=== PATIENT | female | born 2000 | race Caucasian/White ===

== ENCOUNTER 2024-04-02 20:31 | Observation (INO) | payer BC, MEDICAID, SELFPAY ==
[2024-04-02 20:43] VITALS: BP 133/77; PULSE 93
[2024-04-02 20:45] VITALS: BMI 42.0
== END 2024-04-02 21:34 | disposition home or self-care (01) ==
PROVIDERS: Admitting Provider Specialist; Visit Provider Specialist
DX: O47.9 False labor, unspecified (principal); Z3A.00 Weeks of gestation of pregnancy not specified
CPT/HCPCS: 59899

== ENCOUNTER 2024-04-03 03:53 | Inpatient (IN) | payer BC, MEDICAID, SELFPAY ==
[2024-04-03] VITALS (159 sets, daily range): BP systolic 95–153; BP diastolic 43–83; PULSE 72–136; O2SAT 92–100; BMI 42.0
--- NOTE | 2024-04-03 06:32 | PD.LDHP ---
Documentation for date of: 04/03/24 OB Labor/Induct. HPI History of Present Illness History of present illness: H and P dictated in Nuance [id number] Meds Home Medications and Allergies Home Medications ?Medication ?Instructions ?Recorded ?Confirmed ?Type iron 18 mg tablet 18 mg DAILY 04/02/24 04/03/24 History no.58-iron bisglycinate 400 cap PO DAILY 04/02/24 04/03/24 History 10 mg iron-folic acid 400 mcg capsule Allergies Allergy/AdvReac Type Severity Reaction Status Date / Time amoxicillin Allergy Unknown RASH Unverified 01/15/16 21:49
[2024-04-03 06:53] LABS: Basophils % (Auto) 0 % (0-2.5); Eosinophils % (Auto) 0 % (0-10); Hematocrit 34.9 % (36.0-46.0); Immature Granulocytes % (Auto) 0 % (0-0); Immature Granulocytes Auto 0.05 Thou/mm3 (0.00-0.00); Lymphocytes # (Auto) 1.4 Thou/mm3 (1.0-4.8); Lymphocytes % (Auto) 12 % (10-50); Mean Corpuscular HGB Conc 34.4 g/dl (31.0-37.0); Mean Corpuscular Hemoglobin 28.9 pg (25.0-35.0); Mean Corpuscular Volume 84 fL (80-100); Monocytes # (Auto) 0.6 Thou/mm3 (0.0-0.8); Monocytes % (Auto) 5 % (0-12); Neutrophils # (Auto) 9.2 Thou/mm3 (1.8-7.7); Neutrophils % (Auto) 82 % (37-80); Nucleated Red Blood Cell % 0 /100 WBC (0); Platelet Count 205 Thou/mm3 (140-440); RDW Standard Deviation 41.7 fL (36.4-46.3); Red Blood Count 4.15 Miln/mm3 (4.00-5.20); White Blood Count 11.2 Thou/mm3 (3.6-11.0)
[2024-04-03 07:33] LABS: Syphilis Nonreactive (Nonreactive)
[2024-04-03] MEDS: fentaNYL CIT INJ 50 mCg/ML AMP 2ML 100 MCG IV (07:59)
--- NOTE | 2024-04-03 08:03 | ESHP_ITS ---
RE: JOSE ALBERTO HIGGINS : 2000 DATE OF ADMISSION: 04/03/2024 HISTORY OF PRESENT ILLNESS: This is a 23-year-old 1, para 0 with a due date of 04/01/2024 with intrauterine at 40 weeks and 2 days. She presents to labor and delivery complaining of contractions and is noted to be in early labor. She denies any leaking or bleeding. She reports normal movement. Her was complicated by a positive QuantiFERON TB gold test. She is asymptomatic and her chest x-ray was negative. She was also treated for iron deficiency anemia during her . ALLERGIES: MACROBID AND AMOXICILLIN. MEDICATIONS: 1. multivitamin 1 p.o. daily. 2. Baby aspirin 81 mg 1 p.o. daily. 3. Ferrous sulfate 325 mg 1 p.o. daily. SOCIAL HISTORY: She denies any alcohol, drug use, or smoking. 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 PAST MEDICAL HISTORY: Iron deficiency anemia. Latent tuberculosis infection. Needs treatment 3 months . FAMILY HISTORY: Maternal grandfather has colon cancer and maternal uncle has diabetes. PAST SURGICAL HISTORY: Denies. PHYSICAL EXAMINATION: VITAL SIGNS: Blood pressure 128/77, heart rate 88, respirations 18, temperature 98.2, weight 246 pounds. HEENT: Oropharynx and sclerae are clear. LUNGS: Clear to auscultation bilaterally. HEART: Regular rate and rhythm. ABDOMEN: Gravid term size consistent with estimated weight 8 pounds. PELVIC: See RN notes. EXTREMITIES: Nontender. SKIN: No gross rashes or lesions. NEUROLOGIC: No focal deficit. ASSESSMENT AND PLAN: Intrauterine at 40 weeks and 2 days. Early labor. Anticipate spontaneous vaginal delivery. Informed consent was obtained and the patient was made aware of the risks, complications, alternatives, and benefits of operative vaginal delivery and delivery, agrees with these modes of delivery if indicated. DT: 06:29:08 TT: 07:36:00 Ref: [id number] - TID: [id number]
[2024-04-03] MEDS: RINGERS LACTATED 1000 ML 1,000 ML 100 ML IV ×2 (12:45→21:46)
[2024-04-03] MEDS: OXYTOCIN in NS 20 units 20 UNIT/1,000 ML BAG 125 UNIT IV (16:40)
[2024-04-03] MEDS: MISOPROSTOL 200 mCg TABLET 800 MCG PR (16:45)
[2024-04-03] MEDS: METHYLERGONOVINE INJ 0.2 MG/ML VIAL IM (17:01)
--- NOTE | 2024-04-03 17:41 | OBDSUM_ITS ---
Vacuum Assisted Delivery General Patient Counseled by physician:: Yes Informed consent to patient:: Yes Estimated weight:: 7 lb 8 oz Cervical dilation:: fully dilated station:: +4 position:: OA Molding:: No Caput:: Yes Vacuum Application Vacuum type:: Kiwi Vacuum application:: flexing median Total vacuum time (min):: 2 Maximum pressure (cm Hg):: 50 Cup Placement Flexion point identified:: Yes Cup approp. for head position:: Yes Maternal tissue excluded:: Yes Vacuum Procedure Number of pulls (contractions):: 2 Number of pop-offs:: 0 Recommended range maintained:: Yes Vacuum reduced between pulls:: Yes Advancement made each pull:: Yes Vacuum successful:: Yes Immediate [place] Evaluation Immediate assessment:: no apparent injury Hand-off care to:: nursery nurse Additional Comments Additional comments: Vacuum performed for bradycardia and poor maternal expulsive effort. Data ([place]mann) Data : 1 Para: 0 Term: 0 : 0 : 0 Delivery Data ([place]mann) Labor Data ROM Date: 04/03/24 ROM Time: 13:58 Rupture Type: AROM Amniotic Fluid: Clear Delivery Data EDC: 04/01/24 EDC calculated by:: LMP/early US confirmation Labor Onset Stage 1 Date: 04/03/24 Labor Onset Stage 1 Time: 13:58 Labor Onset Stage 2 Date: 04/03/24 Labor Onset Stage 2 Time: 16:18 Delivery Date: 04/03/24 Delivery Time: 16:33 Placenta Delivery Date: 04/03/24 Placenta Delivery Time: 16:56 Delivered by: Laureano Cohen Delivery nurse: Link Taylor Other staff at delivery: Baby Care/Pot Sander Other staff at delivery: Evelyn Beth Delivery Method Delivery: Vaginal Delivery Type: Vacuum Assisted Presentation: Vertex Position: OA Anesthesia Type Primary Anesthesia: Epidural Placenta Placenta Delivery: Manual Placenta Cultures Obtained: No Cord Sample: Cord Blood Obtained Lacerations #1: Perineal: 2nd degree EBL Estimated blood loss (ml): 400 Additional Procedures Manual placental removal and uterine curettage Complications Complications: Retained placenta Uterine atony [place] Data ([place]mann) [place] Data Infant Gender: Female Infant Weight Grams: 3150 1 Minute Total: 8 5 Minute Total: 9
--- NOTE | 2024-04-03 17:41 | PD.LDDS ---
DS: Providers Provider Date of admission: 04/03/24 06:28 Primary care physician: Physician No Primary/Family Admitting Provider: Laureano Cohen MD Attending Provider on Admission: Laureano Cohen MD Attending Provider on DC: Laureano Cohen MD Discharging Provider: Laureano Cohen MD DS: Diagnosis Problem List Completed Was Problem List Reviewed/Reconciled?: Yes Summary/Hosp Course Brief History: H and P dictated in Nuance [id number] Time Spent with Patient Time attestation: Total time spent providing and/or coordinating discharge services: Exam Vital Signs Pulse BP Pulse Ox 108 H 119/57 L 99 04/03/24 17:35 04/03/24 17:35 04/03/24 17:38 Discharge Plan Plan Patient Disposition: HOME (Self Care) Patient condition on transfer: Stable Prescriptions/Referrals Prescriptions/Med Rec: New ibuprofen 600 mg tablet 600 mg PO Q6H PRN (Reason: pain) Qty: 30 0RF No Action iron 18 mg Tablet 18 mg DAILY 10-400 mg-mcg Capsule 400 cap PO DAILY Referrals: No Primary/Family,Physician [Primary Care Provider] - Patient/Caregiver Discharge Instructions Discharge Activity: activity as tolerated Other Discharge Activity Instructions:: Follow up office 6 weeks. Education Materials: After a Vaginal , Pain After Childbirth, Depression Print Language: Turkish Stand Alone Forms: Zoila Award Info., Patient Portal Info Letter Discharge Order Discharge Orders: Discharge (Routine); Ordered 04/04/24 Ordered By: Laureano Cohen Planned Discharge Date 04/04/24
--- NOTE | 2024-04-03 17:58 | ESPR_ITS ---
Exam Vital Signs Pulse BP Pulse Ox 162 H 95/43 L 99 04/03/24 17:49 04/03/24 17:49 04/03/24 17:58 Narrative Exam Above vitals noted. When I arrived at bedside at 1755 her HR was 114 and BP 95/43. Pt denies dizziness or lightheadedness. Her perineal pad was not saturated. Her fundus was firm. I cleared small clots from lower uterine segment. No significant bleeding seen. Objective Labs 04/03/24 06:30 Labs: Laboratory Results - last 24 hr 04/03/24 04/03/24 06:30 10:26 WBC 11.2 H RBC 4.15 Hgb 12.0 Hct 34.9 L MCV 84 MCH 28.9 MCHC 34.4 RDW Std Deviation 41.7 Plt Count 205 Neut % (Auto) 82 H Lymph % (Auto) 12 [place] % (Auto) 5 Eos % (Auto) 0 Baso % (Auto) 0 Neut # (Auto) 9.2 H Lymph # (Auto) 1.4 [place] # (Auto) 0.6 Eos # (Auto) 0.0 Baso # (Auto) 0.0 Immature Gran # (Auto) 0.05 H Absolute Nucleated RBC 0.00 Immature Gran % 0 Nucleated RBC % 0 Syphilis Serology Nonreactive Blood Type O Positive Antibody Screen NEGATIVE Blood Bank Wristband ID Yes Impressions Impression: Transient tachycardia but not persistent Firm fundus No excessive bleeding Hemodynamically stable Assessment & Plan Plan Comment Plan Comment: Bonus 1 liter of NS IV fluid over one hour Continue Pitocin. Time Spent With Patient Time:
[2024-04-03] MEDS: CLINDAMYCIN 900MG IVPB 900 MG in PRE-MIXED 1 BAG 50 MG IV (18:58)
[2024-04-03 23:06] LABS: Basophils % (Auto) 0 % (0-2.5); Eosinophils # (Auto) 0.2 Thou/mm3 (0.0-0.5); Eosinophils % (Auto) 1 % (0-10); Hematocrit 28.5 % (36.0-46.0); Hemoglobin 9.5 g/dL (12.0-16.0); Immature Granulocytes % (Auto) 1 % (0-0); Immature Granulocytes Auto 0.07 Thou/mm3 (0.00-0.00); Lymphocytes # (Auto) 1.5 Thou/mm3 (1.0-4.8); Lymphocytes % (Auto) 11 % (10-50); Mean Corpuscular HGB Conc 33.3 g/dl (31.0-37.0); Mean Corpuscular Hemoglobin 28.7 pg (25.0-35.0); Mean Corpuscular Volume 86 fL (80-100); Monocytes # (Auto) 0.5 Thou/mm3 (0.0-0.8); Monocytes % (Auto) 4 % (0-12); Neutrophils # (Auto) 10.5 Thou/mm3 (1.8-7.7); Neutrophils % (Auto) 82 % (37-80); Nucleated Red Blood Cell % 0 /100 WBC (0); Platelet Count 191 Thou/mm3 (140-440); RDW Standard Deviation 42.7 fL (36.4-46.3); Red Blood Count 3.31 Miln/mm3 (4.00-5.20); White Blood Count 12.8 Thou/mm3 (3.6-11.0)
[2024-04-04] VITALS: BP 118/81; PULSE 111; RESP 17; TEMP 36.9; O2SAT 98
[2024-04-04] MEDS: CLINDAMYCIN IV (03:02)
[2024-04-04] MEDS: NS IV (03:02)
[2024-04-04 04:30] VITALS: BP 114/74; PULSE 109; RESP 18; TEMP 36.9; O2SAT 97
[2024-04-04 08:00] VITALS: BP 112/71; PULSE 103; RESP 18; TEMP 36.9; O2SAT 97
[2024-04-04 09:26] LABS: Gentamicin, Random 1.3 mcg/mL (4.0-10.0)
--- NOTE | 2024-04-04 10:08 | ESPR_ITS ---
RE: JOSE ALBERTO HIGGINS : 2000 DATE OF SERVICE: 04/04/2024 S: The patient denies any problem or complaints. She is voiding. She is ambulating. She tolerated diet. She is passing flatus. She denies any dizziness or lightheadedness. She denies any chest pain, palpitations, shortness of breath, or lower extremity pain. She denies any excessive vaginal bleeding. O: VITAL SIGNS: Blood pressure 114/74, heart rate 109, respirations 18, temperature 98.4, pulse oximetry 97% on room air. LUNGS: Clear to auscultation bilaterally. HEART: Regular rate and rhythm. ABDOMEN: Fundus is firm, nontender. EXTREMITIES: Nontender. LABORATORY DATA: Hemoglobin pre-delivery is 12.0, post delivery is 9.5. ASSESSMENT AND PLAN: day #1 status post vacuum-assisted vaginal delivery, status post manual placenta removal and uterine curettage for retained placenta. Continue prophylactic antibiotics to the 24-hour point and then discontinue. Monitor for any excessive vaginal bleeding and possible discharge home tomorrow. I encouraged ambulation. DT: 07:42:33 TT: 09:55:00 Ref: [id number] - TID: [id number]
[2024-04-04] MEDS: CLINDAMYCIN 900MG IVPB 50 ML 100 MG IV (11:00)
[2024-04-04 11:48] VITALS: BP 118/73; PULSE 108; RESP 18; TEMP 36.5; O2SAT 98
[2024-04-04 15:36] VITALS: BP 109/73; PULSE 88; RESP 18; TEMP 36.7; O2SAT 96
[2024-04-04 20:00] VITALS: BP 112/77; PULSE 90; RESP 18; TEMP 36.8; O2SAT 98
--- NOTE | 2024-04-08 08:30 | ESOP_ITS ---
RE: JOSE ALBERTO HIGGINS : 2000 DATE OF OPERATION: 04/03/2024 PREOPERATIVE DIAGNOSES: Status post vacuum-assisted vaginal delivery, retained placenta. POSTOPERATIVE DIAGNOSES: Status post vacuum-assisted vaginal delivery, retained placenta with uterine atony. PROCEDURES PERFORMED: Manual placental removal and uterine curettage. SURGEON: Laureano Cohen DO SALES LEDGER CLERK: None. ANESTHESIA: Epidural. ANESTHESIOLOGIST: Kimberly Dennison CRNA ESTIMATED BLOOD LOSS: 400 mL. COMPLICATIONS: None. FINDINGS: A retained placenta, uterus atonic after manual placenta removal, responded to uterotonics. DESCRIPTION OF PROCEDURE: After appropriate informed consent was obtained, the patient made aware of the risks, complications, alternatives, and benefits of the proposed procedure with epidural already in place from the delivery and with adequate anesthesia, a manual placenta removal was performed. This was followed by a uterine curettage with a Banjo curette. Additional membranes were removed and blood clots, possibly small placental fragments, but this is unclear. Then, the uterus was explored and the fundus in the cavity was free of any remaining tissues or retained placental fragments. We administered uterotonics to help firm the uterus. This included Pitocin, which was already running since the 's delivery. She then received Methergine as well as Cytotec per rectum. These measures firm the uterus. The uterus was below the umbilicus and firm at the end of the procedure. She was observed for several minutes and no significant vaginal bleeding was noted. The second-degree perineal laceration was repaired with 2-0 chromic catgut suture. She remained hemodynamically stable. All instruments were removed from the vagina. Plan is to continue antibiotics for 24 hours to prevent infection. I discussed with the patient the nature of her condition, intraoperative findings, and treatment plan. All questions were answered. DT: 17:52:17 TT: 22:04:00 Ref: [id number] - TID: [id number]
== END 2024-04-04 21:25 | disposition home or self-care (01) | DRG 797 ==
LOC: S4SX 17:17 → S4NX 21:02
PROVIDERS: Admitting Provider Specialist; Visit Provider Specialist
DX: O48.0 Post-term pregnancy (principal); O72.0 Third-stage hemorrhage; Z37.0 Single live birth; O62.2 Other uterine inertia; O70.1 Second degree perineal laceration during delivery; Z3A.40 40 weeks gestation of pregnancy
CPT/HCPCS: 36415; 59409; 80170; 85025; 86780; 86850; 86900; 86901; 86923; 94762; J1580; J2210; J2590; J2795; J3010; J7050; J7120; S0077; S0191; A9270; J0736; J3490

== ENCOUNTER 2024-08-22 22:30 | Emergency (ER) | payer BC, MEDICAID, SELFPAY ==
[2024-08-22 22:32] VITALS: BMI 39.4
[2024-08-22 23:04] VITALS: BP 109/74; PULSE 111; RESP 18; TEMP 37; O2SAT 98
--- NOTE | 2024-08-22 23:07 | PD.EDSYNC ---
ED Syncope RME/HPI General Chief Complaint: Syncope / Near Syncope Stated Complaint: passed out at home after back pain Time Seen by Provider: 08/22/24 23:05 Source: patient, family, RN notes reviewed and old records reviewed Arrival date/time: 08/22/24 22:30 Mode of arrival: wheelchair Limitations: no limitations RME / HPI RME / HPI narrative: 23yof presents to ED for lower back pain x1 day. Patient reports standing from bent over position and feeling a strain to right lower back. No fall reported. Reports increased pain with movement and ambulation. Patient took 500mg Tylenol this morning and 600mg ibuprofen at 1330 with minimal relief. Patient also reports brief syncopal episode today. She got up to change her clothes, felt dizzy and then passed out. Denies head injury. Single episode of syncope in the past when she saw blood. No shortness of breath or chest pain reported. Denies LE weakness, numbness/tingling or bowel/bladder incontinence. Related Data Home Medications ?Medication ?Instructions ?Recorded ?Confirmed iron 18 mg tablet 18 mg DAILY 04/02/24 04/03/24 no.58-iron bisglycinate 400 cap PO DAILY 04/02/24 04/03/24 10 mg iron-folic acid 400 mcg capsule Previous Rx's ?Medication ?Instructions ?Recorded ibuprofen 600 mg tablet 600 mg PO Q6H PRN pain #30 tabs 04/03/24 ibuprofen 600 mg tablet 600 mg PO Q6H PRN pain #30 tabs 08/23/24 lidocaine 5 % topical patch 1 patch topical QDAY PRN pain #15 08/23/24 ea methocarbamol 500 mg tablet 500 mg PO Q8H PRN pain #30 tabs 08/23/24 Allergies Allergy/AdvReac Type Severity Reaction Status Date / Time amoxicillin Allergy Unknown RASH Verified 08/22/24 22:41 nitrofurantoin (From Allergy Unknown Rash Verified 08/22/24 22:41 Macrobid) Review of Systems Review of Systems Systems Reviewed: All systems reviewed, normal except as documented Constitutional Constitutional: Denies chills and Denies fever(s) Cardiovascular Cardiovascular: Denies chest pain, Denies dyspnea and Reports syncope Respiratory Respiratory: Denies dyspnea Gastrointestinal Gastrointestinal: Denies abdominal pain, Denies fecal incontinence, Denies nausea and Denies vomiting Genitourinary Genitourinary: Denies dysuria, Denies hematuria and Denies urinary incontinence Musculoskeletal Musculoskeletal: Reports myalgias, Denies numbness and Denies tingling Neurologic Neurologic: Denies localized weakness, Denies numbness, Reports syncope and Denies tingling Past Medical History Past Medical History GASTROINTESTINAL: Positive Obesity Surgical History OTHER SURGICAL HX: Denies past surgical history Social History SMOKING STATUS: Never smoker SUBSTANCE USE: does not use ALCOHOL: Never ED Exam General Limitations: Present no limitations General appearance: Present alert, in no apparent distress and obese Head Head exam: Present atraumatic and normocephalic Eye Eye exam: Present normal appearance, PERRL and EOMI ENT ENT exam: Present normal exam and mucous membranes moist Neck Neck exam: Present normal inspection and full ROM Chest Chest inspection: Present normal inspection and symmetric chest wall rise Respiratory Respiratory exam: Present normal lung sounds bilaterally; Absent respiratory distress Cardiovascular Cardiovascular exam: Present regular rate and tachycardia (mild) Abdominal Exam Abdominal exam: Present soft; Absent distention or tenderness Extremities Exam Extremities exam: Present normal inspection and full ROM Back Exam Back exam: Present paraspinal tenderness (right lumbar); Absent vertebral tenderness Neurological Exam Neurological exam: Present alert, oriented X3, CN II-XII intact and other (No saddle anesthesia); Absent motor sensory deficit Psychiatric Psychiatric exam: Present normal affect and normal mood Skin Skin exam: Present warm, dry, intact and normal color Course Quality Measures none Orders Category Date Time Status EKG (ED ONLY) *Do not use* NOW Care 08/23/24 00:15 Completed EKG (ED Only) Stat Exams 08/23/24 00:15 Draft Alcohol, Urine Stat Lab 08/22/24 23:24 Completed CBC Stat Lab 08/22/24 23:51 Completed CMP [Comprehensive Metabolic Panel] Stat Lab 08/22/24 23:51 Completed Drug Screen,Urine Stat Lab 08/22/24 23:24 Completed HCG Qualitative,Urine Stat Lab 08/22/24 23:24 Completed Troponin I Stat Lab 08/22/24 23:51 Completed UA [Urinalysis] Stat Lab 08/22/24 23:24 Completed Acetaminophen Tab [Tylenol ES Tab] Med 08/23/24 00:30 Discontinued 1,000 mg PO X1 ONE CYCLObenzaPRINE [Flexeril] Med 08/23/24 00:30 Discontinued 10 mg PO X1 ONE HYDROcodone*/APAP 7.5/325 [[place] 7.5/325] Med 08/22/24 23:06 Discontinued 1 tab PO X1 ONE Ketorolac Inj [Toradol Inj] Med 08/22/24 23:06 Discontinued 30 mg IM X1 ONE Vital Signs Vital signs: Vital Signs Temperature 98.6 F 08/22/24 23:04 Pulse Rate 111 H 08/22/24 23:04 Respiratory Rate 18 08/22/24 23:04 Blood Pressure 109/74 08/22/24 23:04 Pulse Oximetry (%) 98 08/22/24 23:04 Oxygen Delivery Method Room Air 08/22/24 23:04 Procedures -ED EKG Interpretation #1: Date of EK08/23/24 Rate: 95 Interpretation: Interpreted by me EKG Impression: Normal sinus rhythm (with sinus arrythymia), No acute ST-T changes, No ectopy, No ischemic changes, Normal QRS, Normal intervals and Normal axis Additional EKG comment: No stemi Syncope MDM Narrative MDM Narrative:: 23yof presents to ED for lower back pain x1 day. Patient reports standing from bent over position and feeling a strain to right lower back. No fall reported. Reports increased pain with movement and ambulation. Patient took 500mg Tylenol this morning and 600mg ibuprofen at 1330 with minimal relief. Patient also reports brief syncopal episode today. She got up to change her clothes, felt dizzy and then passed out. Denies head injury. Single episode of syncope in the past when she saw blood. No shortness of breath or chest pain reported. Denies LE weakness, numbness/tingling or bowel/bladder incontinence. Patient reassessed. Back pain improved after medications administered. Patient is neurologically intact, able to ambulate independently. Encouraged rest, nsaid, muscle relaxer, ice/heat application prn. Syncope workup reassuring. Recommended adequate fluids, most likely vasovagal response. PCP follow-up as needed. Stable for discharge, RTED precautions given. Patient data External records reviewed:: [facility] previous records (04/03/24 ED visit for labor and delivery) Clinical information provided by:: patient Social determinants that could affect healthcare access:: other (specify) (poor access to healthcare) Patient has the following chronic illnesses:: obesity How is presenting disease/condition affected by chronic disease/condition?: exacerbated by Evaluation data The following diagnostics were reviewed and interpreted by me:: lab results and EKG tracing(s) Lab and/or radiology exams considered but not ordered:: L-spine xrays: no hx of trauma or fall, no midline tenderness Interpretation Summary: cbc 6.7 hgb 12 .5 etoh urine negative uds negative hcg negative UA +leuks, suspect contaminant. Negative wbcs Medications / Prescriptions Medications or Prescriptions considered but not ordered:: no antibiotics recommended at this time Medication administrations:: Medication Administration History Discontinued Medications Acetaminophen (Acetaminophen 500 Mg Tablet) 1,000 mg PO X1 ONE Stop: 08/23/24 00:31 Last Admin: 08/23/24 00:40 Dose: 1,000 mg Documented By: COLE Hydrocodone Bitart/Acetaminophen (Hydrocodone/Apap 7.5/325 Tablet) 1 tab PO X1 ONE Stop: 08/22/24 23:07 Last Admin: 08/22/24 23:24 Dose: 1 tab Documented By: COLE Cyclobenzaprine HCl (Cyclobenzaprine 5 Mg Tablet) 10 mg PO X1 ONE Stop: 08/23/24 00:31 Last Admin: 08/23/24 00:40 Dose: 10 mg Documented By: COLE Ketorolac Tromethamine (Ketorolac Inj 60 Mg/2 Ml Vial) 30 mg IM X1 ONE Stop: 08/22/24 23:07 Last Admin: 08/22/24 23:24 Dose: 30 mg Documented By: COLE above medications administered in ED Consultations Consultation(s) initiated? (list below): No Diagnosis Syncope Differential Diagnosis: syncope due to orthostatic hypotension, vasovagal syncope, dehydration and other (Acute back pain, strain, sprain) Most likely diagnosis given after review of the tests above:: Vasovagal syncope, back strain Admission Indicated Admission indicated?: not indicated Admission Request Was there a request for admission?: No Disposition Plan Disposition Plan: Discharge Discharge Attestation Discharge Attestation: The patient and all family members were given an opportunity to ask questions and understood the discharge instructions. Discharge instructions specifically effects, indications for sooner follow up or return to the emergency department, and the expected course of current diagnosis. Patient condition: Stable Discharge Plan Plan Patient Disposition: HOME (Self Care) Patient condition on transfer: Stable Prescriptions/Referrals Prescriptions/Med Rec: New ibuprofen 600 mg tablet 600 mg PO Q6H PRN (Reason: pain) Qty: 30 0RF methocarbamol 500 mg tablet 500 mg PO Q8H PRN (Reason: pain) Qty: 30 0RF lidocaine 5 % adhesive patch,medicated 1 patch topical QDAY PRN (Reason: pain) Qty: 15 0RF Rx Instructions: leave on most painful area for up to 12 hrs No Action iron 18 mg Tablet 18 mg DAILY 10-400 mg-mcg Capsule 400 cap PO DAILY ibuprofen 600 mg tablet 600 mg PO Q6H PRN (Reason: pain) Qty: 30 0RF Problem List Clinical Impression: Syncope, Low back strain Patient/Caregiver Discharge Instructions Education Materials: ED Back Sprain/Strain, ED Fainting, Vagal Reaction Print Language: Lao Stand Alone Forms: Zoila Award Info., Work/School Release, Patient Portal Info Letter PA/ARCHITECTURAL TECHNICIAN Supervising Physician PA/ARCHITECTURAL TECHNICIAN Supervising Physician: Monique
[2024-08-22] MEDS: HYDROcodone/APAP 7.5/325 TABLET 1 TAB PO (23:24)
[2024-08-22] MEDS: KETOROLAC INJ 60 MG/2 ML VIAL 30 MG IM (23:24)
[2024-08-22 23:42] LABS: Collection Type, Urine Clean Catch; RBC,Urine 0 /hpf (0-3)
[2024-08-23 00:02] LABS: Alcohol, Urine Negative (Negative); Amphetamine/Methamp Scrn,U Negative (Negative); Barbiturate Screen,Urine Negative (Negative); Benzodiazepines Screen,Urine Negative (Negative); Benzoylecgonine Screen, Ur Negative (Negative); Fentanyl Screen,Urine Negative (Negative); Opiate Screen,Urine Negative (Negative); THC Screen,Urine Negative (Negative)
[2024-08-23 00:08] LABS: Basophils % (Auto) 0 % (0-2.5); Eosinophils % (Auto) 0 % (0-10); Hematocrit 37.2 % (36.0-46.0); Hemoglobin 12.5 g/dL (12.0-16.0); Immature Granulocytes % (Auto) 0 % (0-0); Immature Granulocytes Auto 0.03 Thou/mm3 (0.00-0.00); Lymphocytes # (Auto) 0.7 Thou/mm3 (1.0-4.8); Lymphocytes % (Auto) 10 % (10-50); Mean Corpuscular HGB Conc 33.6 g/dl (31.0-37.0); Mean Corpuscular Hemoglobin 28.4 pg (25.0-35.0); Mean Corpuscular Volume 85 fL (80-100); Monocytes # (Auto) 0.4 Thou/mm3 (0.0-0.8); Monocytes % (Auto) 5 % (0-12); Neutrophils # (Auto) 5.6 Thou/mm3 (1.8-7.7); Neutrophils % (Auto) 84 % (37-80); Nucleated Red Blood Cell % 0 /100 WBC (0); Platelet Count 196 Thou/mm3 (140-440); RDW Standard Deviation 41.1 fL (36.4-46.3); White Blood Count 6.7 Thou/mm3 (3.6-11.0)
--- NOTE | 2024-08-23 00:15 | EKG_ITS ---
[facility] Test Date: 2024-08-23 Pat Name: JOSE ALBERTO HIGGINS Department: Room: - Gender: Female Car Mover: : 2000 Requested By: Sridhar Diane Order Number: [id number] Reading MD: Sridhar Diane Measurements Intervals [place] Rate: 95 P: 51 [place]: 173 QRS: 79 QRSD: 92 T: 53 QT: 330 QTc: 415 Interpretive Statements SINUS RHYTHM WITH SINUS ARRHYTHMIA No previous ECG available for comparison /store/S0/[id number]
[2024-08-23 00:20] LABS: Bacteria,Urine 3+; Bilirubin,Urine Negative (Negative); Blood,Urine Negative (Negative); Clarity,Urine Turbid (Clear/Hazy); Color,Urine Yellow (Lt Yel-Yel); Glucose, Urine Negative (Negative); Ketones,Urine Negative (Negative); Leukocyte Esterase,Urine Positive (Negative); Nitrite,Urine Negative (Negative); Protein,Urine Trace (Neg - Trace); Specific Gravity,Urine 1.025 (1.001-1.035); Squamous Epithelial Cell,Urine 4 /hpf (0-5); Urobilinogen,Urine Negative mg/dL (0.0-1.0); WBC,Urine 1 /hpf (0-5)
[2024-08-23 00:21] LABS: HCG Qualitative,Urine Negative
[2024-08-23 00:30] LABS: Alanine Aminotransferase < 7 U/L (10-49); Albumin, Serum 4.5 gm/dL (3.5-5.0); Albumin/Globulin Ratio 1.6 (1.2-2.2); Alkaline Phosphatase 82 U/L (46-116); Anion Gap 9 (7-16); Aspartate Amino Transferase 10 U/L (0-34); BUN/Creatinine Ratio 20 Ratio (12-20); Bilirubin,Total 0.8 mg/dL (0.3-1.2); Blood Urea Nitrogen 14 mg/dL (9-23); Calcium 8.8 mg/dL (8.3-10.6); Calcium (Corrected) 8.8 mg/dL (8.5-10.1); Carbon Dioxide 25.3 mMol/L (20.0-31.0); Chloride 107 mMol/L (98-107); Creatinine (Component) 0.7 mg/dL (0.6-1.3); Estimated Creatinine Clearance 147.1 mL/min (>60); Globulin 2.8 gm/dL (2.3-3.5); Glucose 99 mg/dL (74-106); Osmolality,Calculated 281 (275-295); Potassium 3.7 mMol/L (3.4-5.1); Sodium 141 mMol/L (136-145); Total Protein 7.3 gm/dL (5.7-8.2); Troponin I < 0.002 ng/mL (0.0-0.045); eGFR > 60 See Note
[2024-08-23] MEDS: CYCLObenzaPRINE 5 MG TABLET 10 MG PO (00:40)
[2024-08-23] MEDS: ACETAMINOPHEN 500 MG TABLET 1000 MG PO (00:40)
== END 2024-08-23 00:52 | disposition home or self-care (01) ==
LOC: SERX 08-23 00:58
PROVIDERS: Physician Assistant; Emergency Provider Emergency Medicine
DX: S39.012A Strain of muscle, fascia and tendon of lower back, initial encounter (principal); R55 Syncope and collapse; I49.8 Other specified cardiac arrhythmias; X58.XXXA Exposure to other specified factors, initial encounter; Y92.009 Unspecified place in unspecified non-institutional (private) residence as the place of occurrence of the external cause
CPT/HCPCS: 36415; 80053; 80307; 80320; 81001; 81025; 84484; 85025; 93005; 96372; 99283; J1885; A9270; G0480